=== PATIENT | female | born 1985 | race Caucasian/White ===

== ENCOUNTER 2017-01-09 21:14 | Emergency (ER) | payer OTHER ==
[~2017-01-09] VITALS: Ht 152.4 cm; Wt 85.0 kg
[~2017-01-09 21:14] MED LIST: CALC-143 PO; PRENAT PO
[2017-01-09 21:16] VITALS: Ht 152.4 cm; Wt 85.0 kg
--- NOTE | 2017-01-09 21:35 | ERD ---
ER Documentation Chief Complaint Chief Complaint PT IN C/O "COUGHING UP PHLEM AND CHEST DISCOMFORT. FLU-LIKE SYMPTOMS" HPI 31-year-old female otherwise healthy non-smoker presents with a cough for 2 weeks. She describes a dry cough, with associated rhinorrhea and sore throat initially. She continues to have a cough and describes chest tightness. It is in the center of her chest and is reported with a cough. She has no trouble swallowing, no shortness of breath, no syncope. She denies recent travel or hemoptysis. ROS All systems reviewed and are negative except as per history of present illness. Medications Home Meds Active Scripts Ibuprofen* (Motrin*) 600 Mg Tab, 600 MG PO Q6, #30 TAB Prov:ECLESTINO ARAUJO PA-C 01/09/17 Amoxicillin/Potassium Clav (Amox-Clav 875-125 mg Tablet) 875-125 mg Tab, 1 TAB PO BID for 7 Days, #14 TAB Prov:CELESTINO ARAUJO PA-C 01/09/17 Reported Medications Calcium Citrate/Vitamin D (Citracal-Vitamin D 200 MG-250) 1 Each Tablet, 1 EACH PO BID, TAB 12/09/15 Multivit/Min/Fol Ac/Iron/Pren* ( S*) 1 Tab Tab, 1 TAB PO DAILY, TAB 12/09/15 Allergies Allergies: Coded Allergies: No Known Allergy (Unverified , 12/08/15) PMhx/Soc Medical and Surgical Hx: pt denies Medical Hx, pt denies Surgical Hx Hx Alcohol Use: No Hx Tobacco Use: No Physical Exam Vitals Vital Signs Date Time Temp Pulse Resp B/P Pulse Ox O2 Delivery O2 Flow Rate FiO2 01/09/17 21:16 99.0 82 18 139/71 100 Physical Exam General: Well-developed, well-nourished. The patient appears in no acute distress. HEENT: Head is normocephalic, atraumatic. No scleral icterus. Pupils are equal , round, and reactive. Oral mucous membranes are moist. No pharyngeal erythema. Neck: Supple. Nontender. Lungs: Clear to auscultation. Normal air movement. Heart: Regular rate and rhythm. S1 and S2 are normal. No murmurs, gallops, or rubs. Abdomen: Soft, nontender, nondistended. Bowel sounds are normoactive. Extremities: No clubbing or cyanosis. Normal pulses. Moving extremities x 4. No weakness. Neurologic: Alert and oriented 3. No focal deficits. Skin: Normal turgor. No rash or lesions. Results 24 hrs DIAGNOSTIC IMAGING REPORT Patient: VASU CLAUDIO : 1985 Age: 31 Sex: F MR #: [id number] DOS: 01/09/17 2133 Ordering MD: CELESTINO ARAUJO PA-C Location: [facility] Room/Bed: PROCEDURE: XR Chest. CLINICAL INDICATION: Cough. Chest pain. TECHNIQUE: PA and Lateral views of the chest were obtained. COMPARISON: None. FINDINGS: The cardiomediastinal silhouette is within normal limits. The lungs are clear. No signs of pleural fluid or pneumothorax are seen. The osseous structures and soft tissues are unremarkable. IMPRESSION: No evidence for active cardiopulmonary disease. RPTAT: [facility] Physician Dee Date Time Electronically viewed and signed by Physician Dee on 01/09/2017 23:44 RS/ CC: CELESTINO ARAUJO PA-C Current Medications Medications (Trade) Dose Ordered Sig/Tony Route PRN Reason Start Time Stop Time Status Last Admin Dose Admin Ibuprofen (Motrin) 600 mg ONCE ONCE PO 01/09/17 22:00 01/09/17 22:01 DC 01/09/17 21:42 Procedures/MDM 31-year-old female comes to emergency room with cough for 2 weeks, chest x-ray is normal, she will be treated based on her history of cough ongoing for 2 weeks at his waxing and waning. No evidence of pneumonia, doubt acute retention , pulmonary embolus or dissection. Patient's pain is likely pleuritic. Vital signs are normal she is PERC negative. Departure Diagnosis: Primary Impression: Cough Condition: Good CELESTINO ARAUJO PA-C Jan 09, 2017 21:35
[2017-01-09] MEDS ORDERED: IBUPROFEN 600 MG TAB PO ONE (22:00)
--- NOTE | 2017-01-09 23:45 | RADRPT ---
PROCEDURE: XR Chest. CLINICAL INDICATION: Cough. Chest pain. TECHNIQUE: PA and Lateral views of the chest were obtained. COMPARISON: None. FINDINGS: The cardiomediastinal silhouette is within normal limits. The lungs are clear. No signs of pleural f luid or pneumothorax are seen. The osseous structures and soft tissues are unremarkable. IMPRESSION: No evidence for active cardiopulmonary disease. RPTAT: [facility] Physician Dee Date Time Electronically viewed and signed by Verenice White Physician on 01/09/2017 23:44 RS/
[2017-01-09] MEDS ORDERED: IBUP-1542 PO (23:50)
[2017-01-09] MEDS ORDERED: AMOX1TAB10 PO (23:50)
[2017-01-10 00:47] VITALS: BP 132/73; PULSE 77; RESP 18; TEMP 98.3
== END 2017-01-10 00:48 | disposition home or self-care (01) ==
LOC: FTE 21:14
DX: R05 Cough (principal)
CPT/HCPCS: 71010

== ENCOUNTER 2018-05-23 06:19 | Emergency (ER) | payer OTHER ==
[~2018-05-23] VITALS: Ht 160 cm; Wt 90.1 kg
[~2018-05-23 06:19] MED LIST changes: +AMOX1TAB10 PO; +IBUP-1542 PO
[2018-05-23 06:29] VITALS: BP 127/68; PULSE 73; RESP 18; Ht 160 cm; Wt 90.1 kg
[2018-05-23] MEDS ORDERED: NAPR-985 PO (06:59)
[2018-05-23] MEDS ORDERED: PRED20TA PO (06:59)
[2018-05-23] MEDS ORDERED: DEXAMETHASONE 10 MG/ML 1 ML INJ IM ONE (07:00)
--- NOTE | 2018-05-23 08:55 | ERD ---
ER Documentation Chief Complaint Chief Complaint cough & sorethroat x3 days seen by pmd, tonsilitis HPI 32-year-old female complaining of sore throat and cough times 3 days. Patient took antibiotics last week with no alleviation. She states it feels mildly short of breath with laying down. She is never had this before. She denies any chest pain or shortness of breath. Denies productive cough. Denies fever. Denies medical problems. NKDA. Surgical history . Social history denies ROS All systems reviewed and are negative except as per history of present illness. Medications Home Meds Active Scripts Prednisone* (Prednisone*) 20 Mg Tab, 40 MG PO DAILY for 4 Days, TAB Prov:KACY GASCA PA-C 05/23/18 Naproxen* (Naprosyn*) 500 Mg Tablet, 500 MG PO BID PRN for PAIN AND/OR INFLAMMATION, #30 TAB Prov:KACY GASCA PA-C 05/23/18 Ibuprofen* (Motrin*) 600 Mg Tab, 600 MG PO Q6, #30 TAB Prov:CELESTINO ARAUJO PA-C 01/09/17 Amoxicillin/Potassium Clav (Amox-Clav 875-125 mg Tablet) 875-125 mg Tab, 1 TAB PO BID for 7 Days, #14 TAB Prov:CELESTINO ARAUJO PA-C 01/09/17 Reported Medications Calcium Citrate/Vitamin D (Citracal-Vitamin D 200 MG-250) 1 Each Tablet, 1 EACH PO BID, TAB 12/09/15 Multivit/Min/Fol Ac/Iron/Pren* ( S*) 1 Tab Tab, 1 TAB PO DAILY, TAB 12/09/15 Allergies Allergies: Coded Allergies: No Known Allergy (Unverified , 12/08/15) PMhx/Soc History of Surgery: Yes (c section) Hx Neurological Disorder: No Hx Respiratory Disorders: No Hx Cardiac Disorders: No Hx Psychiatric Problems: No Hx Miscellaneous Medical Probl: No Hx Alcohol Use: No Hx Substance Use: No Hx Tobacco Use: No FmHx Family History: No diabetes, No coronary disease, No other Physical Exam Vitals Vital Signs Date Temp Pulse Resp B/P (MAP) Pulse Ox O2 O2 Flow FiO2 Time Delivery Rate 05/23/18 98.3 73 18 127/68 100 06:29 (87) Physical Exam GENERAL: The patient is well-appearing, well-nourished, in no acute distress HEENT: Atraumatic. Conjunctivae are pink. Pupils equal, round, and reactive to light. There is no scleral icterus. Tympanic membranes clear bilaterally. Oropharynx clear. Enlarged tonsils noted bilaterally with no erythema or exudate. NECK: C-spine is soft and supple. There is no meningismus. There is no cervical lymphadenopathy. CHEST: Clear to auscultation bilaterally. There are no rales, wheezes or rhonchi. HEART: Regular rate and rhythm. No murmurs, clicks, rubs or gallops. Results 24 hrs Current Medications Medications Dose Sig/Tony Start Time Status Last (Trade) Ordered Route PRN Stop Time Admin Dose Reason Admin 10 mg ONCE ONCE 05/23/18 DC 05/23/18 Dexamethasone IM 07:00 07:05 (Decadron) 05/23/18 07:01 Procedures/MDM ER course: Decadron given in ED. MDM: 32-year-old female presenting with sore throat. Patient has findings con sistent with enlarged tonsils. I have low suspicion for infectious etiology. I will discharge patient with steroids as she would benefit from anti-inflammatory factor and patient will also be discharged with anti-inflammatory medications. Patient is told symptoms change or worsen to return the ER. I have low suspicion for respiratory depression or hypoxia. All questions answered at discharge Departure Diagnosis: Primary Impression: Sore throat Condition: Stable Patient Instructions: Self-Care for Sore Throats Referrals: [facility] YOU HAVE RECEIVED A MEDICAL SCREENING EXAM AND THE RESULTS INDICATE THAT YOU DO NOT HAVE A CONDITION THAT REQUIRES URGENT TREATMENT IN THE EMERGENCY DEPARTMENT. FURTHER EVALUATION AND TREATMENT OF YOUR CONDITION CAN WAIT UNTIL YOU ARE SEEN IN YOUR DOCTORS OFFICE WITHIN THE NEXT 1-2 DAYS. IT IS YOUR RESPONSIBILITY TO MAKE AN APPOINTMENT FOR FOLOW-UP CARE. IF YOU HAVE A PRIMARY DOCTOR --you should call your primary doctor and schedule an appointment IF YOU DO NOT HAVE A PRIMARY DOCTOR YOU CAN CALL OUR PHYSICIAN REFERRAL HOTLINE AT IF YOU CAN NOT AFFORD TO SEE A PHYSICIAN YOU CAN CHOSE FROM THE FOLLOWING [facility] [address] [facility]. [facility] [address] [facility] [address] [facility]. [facility] [address] [facility] [address]. [facility]. [address] Additional Instructions: FOLLOW UP WITH YOUR PRIMARY CARE PHYSICIAN TOMORROW.Return to this facility if you are not improving as expected. KACY GASCA PA-C May 23, 2018 08:55
== END 2018-05-23 07:08 | disposition home or self-care (01) ==
LOC: FTE 06:19
DX: J02.9 Acute pharyngitis, unspecified (principal)
CPT/HCPCS: 96372; 99284; J1100